=== PATIENT | female | born 1995 | race Caucasian/White ===

== ENCOUNTER 2017-09-29 09:08 | Inpatient (IN) | payer OTHER ==
[2017-09-29] MEDS ORDERED: MISOPROSTOL 0.2 MG TABLET ONE (09:40)
[2017-09-29] MEDS ORDERED: LIDOCAINE 1% INJ-PF (10 MG/ML) 30 ML SDV ONE (09:40)
[2017-09-29] MEDS ORDERED: OXYTOCIN/NORMAL SALINE 20 UNIT/1,000 ML RTUINJ ONE (09:40)
[2017-09-29] MEDS ORDERED: RINGERS SOLUTION,LACTATED 1,000 ML IV PRN ×2 (10:27→21:10)
[2017-09-29] MEDS ORDERED: LIDOCAINE 1% INJ-PF (10 MG/ML) 30 ML SDV INJ ONE (10:29)
[2017-09-29] MEDS ORDERED: DIBUCAINE 1% OINTMENT 28 GM TP PRN (10:31)
[2017-09-29] MEDS ORDERED: ZOLPIDEM TARTRATE 5 MG TABLET PO PRN (10:31)
[2017-09-29] MEDS ORDERED: BENZOCAINE/MENTHOL AEROSOL SPRAY 56 ML TOP PRN (10:31)
[2017-09-29] MEDS ORDERED: OXYTOCIN/NORMAL SALINE 20 UNIT/1,000 ML RTUINJ IV PRN (10:31)
[2017-09-29] MEDS ORDERED: ACETAMINOPHEN WITH CODEINE #3 TABLET PO PRN ×2 (10:31)
[2017-09-29] MEDS ORDERED: MEASLES,MUMPS&RUBELLA VACC/PF 0.5 ML VIAL SUBCUT PRN (10:31)
[2017-09-29] MEDS ORDERED: DIPH/PERTUSS(ACELL)/TETANUS VAC/PF 0.5 ML SYR (>=10YO) IM PRN (10:31)
[2017-09-29 10:32] LABS: ABSOLUTE MONOCYTES (AUTO) 0.5 10^3/uL (0.1-1.4); ABSOLUTE NEUT (AUTO) 6.7 10^3/uL (1.7-8.2); BASOPHILS % (AUTO) 0.3 % (0-2); EOSINOPHILS % (AUTO) 0.6 % (0-6); HEMATOCRIT 30.9 % (36.0-47.0); HEMOGLOBIN 9.9 g/dL (12.0-15.5); MEAN CORPUSCULAR HEMOGLOBIN 22.6 pg (27.0-33.4); MEAN CORPUSCULAR VOLUME 71 fl (80-97); MONOCYTES % (AUTO) 6.1 % (3-13); PLATELET COUNT 191 10^3/uL (150-450); RED BLOOD COUNT 4.38 10^6/uL (3.72-5.28); RED CELL DISTRIBUTION WIDTH 16.6 % (11.5-14.0); TOTAL CELLS COUNTED % (AUTO) 100 %; WHITE BLOOD COUNT 8.3 10^3/uL (4.0-10.5)
[2017-09-29 10:43] LABS: APPEARANCE,URINE CLEAR; BILIRUBIN,URINE NEGATIVE (NEGATIVE); COLOR,URINE YELLOW; GLUCOSE, URINE 50 mg/dL (NEGATIVE); KETONES,URINE NEGATIVE (NEGATIVE); LEUKOCYTE ESTERASE,URINE TRACE (NEGATIVE); NITRITE,URINE NEGATIVE (NEGATIVE); PROTEIN,URINE 30 mg/dL (NEGATIVE); URINE SPECIFIC GRAVITY 1.014; UROBILINOGEN,URINE NEGATIVE mg/dL (<2.0)
[2017-09-29 11:13] LABS: URINE AMPHETAMINES SCREEN NEGATIVE; URINE BARBITURATES SCREEN NEGATIVE; URINE BENZODIAZEPINES SCREEN NEGATIVE; URINE COCAINE SCREEN NEGATIVE; URINE MARIJUANA (THC) SCREEN NEGATIVE; URINE METHADONE SCREEN NEGATIVE; URINE PHENCYCLIDINE SCREEN NEGATIVE
--- NOTE | 2017-09-29 11:34 | Warning Signs in Babies ---
VOD Warning Signs Datetime Report Generated by [facility]: 09/29/2017 11:33 VOD#608 -Warning Signs in Babies: Needs to be viewed. (09/29/2017 09:11:Alaina Gutierrez RN)
--- NOTE | 2017-09-29 11:38 | Delivery Summary ---
Del Sum A-C Datetime Report Generated by CPN: 09/29/2017 11:37 DELIVERY PERSONNEL DELIVERY PERSONNEL: [id number] Nurse Circular Sawyer Helper Certified:: Shanique Aceves CNM Labor and Delivery Nurse:: Alaina Gutierrez RNhospital mortician Nurse:: Toshia Gates RN Application Tester/SUPERVISOR ELECTRONIC TESTING: Pawan Jaime, YARDING AND FOLDING MACHINE OPERATOR MATERNAL INFORMATION Delivery Anesthesia: None Medications After Delivery: Pitocin Bolus-Please Comment; Pitocin Drip 20 Units/1000ml NSS Estimated Blood Loss (ml): 200 Maternal Complications: Precipitous Labor (<3hrs) Provider Comments: Precipitious delivery, AROM, mec stained fluidSVD of viable female , head delivered without difficulty loose nuchal noted, delivered through, shoulders and body delivered with ease. Infant with cry and respirations with stimulation. Cord clamped X2 after 2 min delay, infant cut free by pts , spontaneous delivery of placenta via lauren mechanism, mec stained to path. Repair as above, hemostasis acheived with external fundal massage and IV pitocin, mother and infant in stable condition, routine pp care. LABOR SUMMARY EDC: 10/08/2017 00:00 No. Babies in Womb: 1 Attempted: No Labor Anesthesia: None LABOR INFORMATION Reason for Induction: Not Applicable Onset of Labor: 09/29/2017 01:00 Oxytocin: N/A Group B Beta Strep: Negative Antibiotics # of Doses: 0 Steroids Given: None Reason Steroids Not Administered: Not Applicable MEMBRANES Membranes Rupture Method: Artificial Rupture of Membranes: 09/29/2017 09:44 Length of Rupture (hr): 0.12 Amniotic Fluid Color: Heavy Meconium Amniotic Fluid Amount: Small Amniotic Fluid Odor: Foul STAGES OF LABOR Stage 3 hr: 0 Stage 3 min: 4 Total Time in Labor hr: 8 Total Time in Labor min: 55 VAGINAL DELIVERY Episiotomy: None Laceration #1: Perineal Laceration Extension #1: First Degree Laceration #2: None Laceration #3: None Laceration Repair: Yes Laceration Repair Note: repaired with 2-0 chromic in usual fashion using lidociane. Sponge Count Correct: Yes Sharps Count Correct: Yes CSECTION DELIVERY Primary Indication: N/A Secondary Indication: N/A CSection Incision: N/A BABY A INFORMATION Infant Delivery Date/Time: 09/29/2017 09:51 Method of Delivery: Vaginal Born in Route : No : N/A Forceps: N/A Vacuum Extraction: N/A Shoulder Dystocia : No PRESENTATION/POSITION BABY A Presentation: Cephalic Cephalic Presentation: Vertex Vertex Position: Right Occipital Anterior Breech Presentation: N/A PLACENTA INFORMATION BABY A Placenta Delivery Time : 09/29/2017 09:55 Placenta Method of Delivery: Spontaneous Placenta Status: Delivered SCORES BABY A Heart Rate 1 min: >100 bpm Resp Effort 1 min: Good Cry Reflex Irritability 1 min: Cough or Sneeze or Pulls Away Muscle Tone 1 min: Active Motion Color 1 min: Blue/Pale Resuscitation Effort 1 min: Tactile Stimulation SCORE 1 MIN: 8 Heart Rate 5 min: >100 bpm Resp Effort 5 min: Good Cry Reflex Irritability 5 min: Cough or Sneeze or Pulls Away Muscle Tone 5 min: Active Motion Color 5 min: Body Paraje, Extremities Blue Resuscitation Effort 5 min: Tactile Stimulation SCORE 5 MIN: 9 INFORMATION BABY A Gestational Age at Delivery: 38.5 Gestational Status: Early Term- 37- 38.6 Weeks Infant Outcome : Liveborn Condition : Stable Infant Sex: Female IDENTIFICATION BABY A Verification Date/Time: 09/29/2017 10:06 ID Band Number: [id number] Mother's Name Verified: Yes RN Verifying Infant: HOneal Huynhs, RN and A. Kody, RN WEIGHT/LENGTH BABY A Infant Birthweight (gm): 3610 Infant Weight (lb): 7 Weight (oz): 15 Infant Length (in): 20.25 Infant Length (cm): 51.44 CORD INFORMATION BABY A No. Cord Vessels: 3 Nuchal Cord : Around Neck x1, Loose Cord Blood Taken: Yes-For Storage (Mom's Blood type +) Suction: Mouth; Nose ASSESSMENT BABY A Complications: Meconium Physical Findings at Delivery: Within Normal Limits Infant Respirations: Grunting; Nasal Flaring Skin to Skin: Yes Skin to Skin Time (min): 60 Manager Financial/ALS Called : No Infant Care By: Aston Kapoor RN. Genet Lundberg, ISADORA BABY B INFORMATION : N/A SIGNATURES Assignment: Elina Quintana MD Signature: with User ID: Apryl, Addendum/Amendment: dr. guerrero covering today : with User ID: Apryl, Addendum/Amendment: dr. guerrero covering today
--- NOTE | 2017-09-29 12:13 | Admission Physical ---
Datetime Report Generated by CPN: 09/29/2017 12:13 CURRENT ADMISSION Hx Assessment: The History has been Reviewed and is Current Chief Complaint: Uterine Contractions Indication for Induction: Not Applicable Indication for Induction: Term, Intrauterine ; Active Labor; Intact Membranes Admit Plan: Admit to Unit ALLERGIES Medication Allergies: No Medication Allergies: No Known Allergies (09/29/2017) Latex: No Latex Allergies OBSTETRICAL HISTORY EDC: 10/08/2017 00:00 : 3 Para: 1 Term: 1 : 0 SAB: 1 IAB: 0 Ectopic: 0 Livin Cesareans: 0 VBACs: 0 Multiple Births: 0 Gestational Diabetes: No Rh Sensitization: No Incompetent Cervix: No RENAN: No Infertility: No ART Treatment: No Uterine Anomaly: No IUGR: No Hx Previous C/S: No Macrosomia: No Hx Loss/Stillborn: No PIH: No Hx : No Placenta Previa/Abruption: No Depression/PP Depression: Yes PTL/PROM: No Post Hemorrhage: No Current Procedures: Ultrasound Obstetrical History Comments: depression with last . Not currently getting treatment SEE RECORDS Alcohol: No Marijuana : No Cocaine: No Other Illicit Drugs: No Cigarettes: Former Smoker. [id number] Cigarette Comments: Pt. stopped smoking in 2016, was pack a day. MEDICAL HISTORY Diabetes: No Blood Transfusion: No Pulmonary Disease (Asthma, TB): No Breast Disease: No Hypertension: No Automatic Equipment Technician Surgery: No Heart Disease: No Hosp/Surgery: Yes Autoimmune Disorder: No Anesthetic Complications: No Kidney Disease: No Abnormal Pap Smear: No Neuro/Epilepsy: No Psychiatric Disorders: No Other Medical Diseases: No Hepatitis/Liver Disease: No Significant Family History: No Varicosities/Phlebitis: No Trauma/Violence : No Thyroid Dysfunction: No Medical History Comments: Last delivery in 2015 INFECTIOUS HISTORY Gonorrhea: No Genital Herpes: No Chlamydia: No Tuberculosis: No Syphilis: No Hepatitis: No HIV/AIDS Exposure: No Rash or Viral Illness: No HPV: No PHYSICAL EXAM General: Normal HEENT: Normal Neurologic: Normal Thyroid: Normal Heart: Normal Lungs: Normal Breast: Normal Back: Normal Abdomen: Normal Genitourinary Exam: Normal Extremities: Normal DTRs: Normal Pelvic Type: Adequate VAGINAL EXAM Dilatation: 9 Effacement: 100 MEMBRANES Membranes: Intact FETUS A EGA: 38.5 Monitoring: External US FHR- Baseline: 135 Variability: Moderate 6-25bpm Accelerations: 15X15 Decelerations: None FHR Category: Category I Estimated Weight (gm): 3200 Presentation: Vertex Admit Comment: active labor, intact membranes GBS negative Admit to L _ D Anticipate PLANS FOR LABOR AND DELIVERY Labor and Delivery: None Pain Management: Epidural Feeding Preference: Breast Benefit of Breast Feed Discussed: Yes Circumcision: N/A INFORMED CONSENT Assignment: Elina Quintana MD Signature: with User ID: Apryl : with User ID: Apryl
[2017-09-29] MEDS: IBUPROFEN 800 MG TABLET PO SCH ×2 (14:06→21:45)
[2017-09-29] MEDS: FERROUS SULFATE 325 MG TABLET PO SCH (17:16)
[2017-09-29] MEDS: DOCUSATE SODIUM 100 MG CAPSULE PO SCH (17:17)
[2017-09-30] MEDS: IBUPROFEN 800 MG TABLET PO SCH ×3 (05:18→22:44)
[2017-09-30 07:49] LABS: HEMATOCRIT 30.9 % (36.0-47.0); HEMOGLOBIN 9.7 g/dL (12.0-15.5); MEAN CORPUSCULAR HEMOGLOBIN 22.4 pg (27.0-33.4); MEAN CORPUSCULAR HGB CONC 31.4 g/dL (32.0-36.0); MEAN CORPUSCULAR VOLUME 71 fl (80-97); PLATELET COUNT 190 10^3/uL (150-450); RED BLOOD COUNT 4.34 10^6/uL (3.72-5.28); RED CELL DISTRIBUTION WIDTH 16.5 % (11.5-14.0); WHITE BLOOD COUNT 8.2 10^3/uL (4.0-10.5)
--- NOTE | 2017-09-30 09:00 | PDOC PROGRESS REPORT ---
Subjective-OB Subjective: Post Delivery Day: 1 22 year old. Denies any needs at this time, states lochia is stable, pain well controlled, voiding without difficulty. Physical Exam (OB) Vital Signs: Temp Pulse Resp BP Pulse Ox 98.3 F 78 18 113/71 98 09/30/17 08:13 09/30/17 08:13 09/30/17 08:13 09/30/17 08:13 09/30/17 08:13 Intake & Output 09/29/17 09/30/17 10/01/17 06:59 06:59 06:59 Weight 97.7 kg - Lochia Lochia Amount: Small 10-25 ml Lochia Color: Rubra/Red - Abdomen Description: Soft Hernia Present: No Fundal Description: Firm, Midline Fundal Height: u/u - u/2 Objective-Diagnostic Laboratory: 09/30/17 07:28 09/29/17 09/29/17 09/29/17 09:20 10:15 10:15 WBC 8.3 RBC 4.38 Hgb 9.9 L Hct 30.9 L MCV 71 L MCH 22.6 L MCHC 32.0 RDW 16.6 H Plt Count 191 Seg Neutrophils % 81.0 H Lymphocytes % 12.0 L Monocytes % 6.1 Eosinophils % 0.6 Basophils % 0.3 Absolute Neutrophils 6.7 Absolute Lymphocytes 1.0 Absolute Monocytes 0.5 Absolute Eosinophils 0.0 Absolute Basophils 0.0 Urine Color YELLOW Urine Appearance CLEAR Urine pH 6.0 Ur Specific [place] 1.014 Urine Protein 30 H Urine Glucose (UA) 50 H Urine Ketones NEGATIVE Urine Blood MODERATE H Urine Nitrite NEGATIVE Ur Leukocyte Esterase TRACE H Blood Type A POSITIVE Antibody Screen NEGATIVE 09/30/17 07:28 WBC 8.2 RBC 4.34 Hgb 9.7 L Hct 30.9 L MCV 71 L MCH 22.4 L MCHC 31.4 L RDW 16.5 H Plt Count 190 Seg Neutrophils % Lymphocytes % Monocytes % Eosinophils % Basophils % Absolute Neutrophils Absolute Lymphocytes Absolute Monocytes Absolute Eosinophils Absolute Basophils Urine Color Urine Appearance Urine pH Ur Specific [place] Urine Protein Urine Glucose (UA) Urine Ketones Urine Blood Urine Nitrite Ur Leukocyte Esterase Blood Type Antibody Screen Assessment and Plan(PN) - Assessment and Plan (1) Vaginal delivery Is this a current diagnosis for this admission?: Yes Plan: routine pp care - Time Spent with Patient Time with patient: Less than 15 minutes Critical Time spent with patient: Less than 15 minutes Medications reviewed and adjusted accordingly: Yes - Disposition Anticipated Discharge: Home Within: within 24 hours
[2017-09-30] MEDS ORDERED: SENNOSIDES/DOCUSATE 8.6-50 MG 1 EACH TABLET PO SCH (10:00)
[2017-09-30] MEDS ORDERED: PRENATAL VITAMIN W DHA CAPSULE PO SCH (10:00)
[2017-09-30] MEDS: FERROUS SULFATE 325 MG TABLET PO SCH ×2 (10:52→17:22)
[2017-09-30] MEDS: DOCUSATE SODIUM 100 MG CAPSULE PO SCH ×2 (10:52→17:22)
[2017-10-01] MEDS: IBUPROFEN 800 MG TABLET PO SCH (06:39)
[2017-10-01 08:59] VITALS: BP 113/63
--- NOTE | 2017-10-01 12:00 | PDOC DISCHARGE SUMMARY ---
Final Diagnosis Discharge Date: 10/01/17 Discharge Data - Discharge Medication Prescriptions: Ibuprofen [Motrin 800 mg Tablet] 800 mg PO Q8 #60 tablet Home Medications: Vit/Iron Fum/Folic AC [ Tablet] 1 tab PO DAILY 09/29/17 Ibuprofen [Motrin 800 mg Tablet] 800 mg PO Q8 #60 tablet 10/01/17 Procedures: NST Intrapartum Procedure(s): Spontaneous Vaginal Delivery - Diagnosis Test Laboratory: Temp Pulse Resp BP Pulse Ox 98.1 F 99 18 113/63 98 10/01/17 10:19 10/01/17 10:19 10/01/17 10:19 10/01/17 08:47 10/01/17 10:19 09/29/17 09/29/17 09/30/17 09:20 10:15 07:28 RBC 4.38 4.34 Hgb 9.9 L 9.7 L Hct 30.9 L 30.9 L Urine Opiates Screen NEGATIVE - Discharge information/Instructions Discharge Activity: Balance Activity w/Rest, Pelvic Rest Discharge Diet: Regular Disposition: HOME, SELF-CARE Follow up with: [facility] in: 4, Weeks
== END 2017-10-01 10:51 | disposition home or self-care (01) | DRG 775 ==
LOC: LC 09:08 → LR 09:37 → 2S 12:12
PROVIDERS: ADMIT Obstetrics & Gynecology; ATTEND Obstetrics & Gynecology
PROC: 10E0XZZ Delivery of Products of Conception, External Approach (ICD-10-PCS; principal; 2017-09-29)
PROC: 0HQ9XZZ Repair Perineum Skin, External Approach (ICD-10-PCS; 2017-09-29)
PROC: 10907ZC Drainage of Amniotic Fluid, Therapeutic from Products of Conception, Via Natural or Artificial Opening (ICD-10-PCS; 2017-09-29)
PROC: 4A1HXCZ Monitoring of Products of Conception, Cardiac Rate, External Approach (ICD-10-PCS; 2017-09-29)
DX: O62.3 Precipitate labor (principal); O77.0 Labor and delivery complicated by meconium in amniotic fluid; O70.0 First degree perineal laceration during delivery; O69.81X0 Labor and delivery complicated by cord around neck, without compression, not applicable or unspecified; Z28.9 Immunization not carried out for unspecified reason; Z87.891 Personal history of nicotine dependence; Z3A.38 38 weeks gestation of pregnancy; Z37.0 Single live birth
CPT/HCPCS: 36415; 80307; 81005; 85025; 85027; 86592; 86850; 86900; 86901; 88307; J2590; J3490